=== PATIENT | male | born 1975 | race Caucasian/White ===

== ENCOUNTER 2017-03-05 12:53 | Inpatient (IN) | payer BC, OTHER ==
[~2017-03-05] VITALS: Ht 182.9 cm; Wt 65.8 kg
[2017-03-05] VITALS: BP 125/82
--- NOTE | 2017-03-05 22:45 | NUR ---
PRE-ADMISSION NOTE: Patient assessed in intake office at 22:45 on 03/05/2017. Patient is ambulatory with steady gate, stable, A&Ox4, speech is soft and clear. 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 Patient states that his last use "Xanax PO today, 03/05/2017 at 15:00" Meth smoke last time" 4 days ago, 03/01/17". CIWA 8: Patient presents with anxiety, agitation, nervousness, bone aches, low back pain, tremors that can felt, sweating. Patient denies N/V, and diarrhea. Patient denies SI/HI. Patient denies history of seizures. Patient reports history of paranoia. Last time he has paranoia "03/01/15, after Xanax taken". VS: T 97'9; HR: 77; BP: 126/82; RR: 18; O2 Sat: 98%; Pain level ( generalized): "7/10". Patient reports pollen extracts allergies . Patient instructed on unit protocol of vitals Q4H and CIWA assessments. Patient verbalizing understanding and agreement. Will complete admission assessment when patient is brought up to unit.
[2017-03-05 23:00] VITALS: BP 126/82
--- NOTE | 2017-03-05 23:00 | NUR ---
ADMISSION NOTE: Patient is a 42 year old male admitted to [facility] on 03/05/17 at 23:00 for Benzo Dependence under medical supervision. Pre-Assessment completed in intake. VS upon admission VS: T 97'9; HR: 77; BP: 126/82; RR: 18; O2 Sat: 98%; Pain level ( generalized): "7/10". Patient reports pollen extracts allergies . Regular Diet, Full Code, Fall and Seizures Precautions. Patient denies history of Seizures. CIWA 8: Patient presents with anxiety, agitation, nervousness, bone aches, low back pain, tremors that can felt, sweating. Patient denies N/V, and diarrhea. Patient denies SI/HI. Patient reports history of paranoia. Last time he has paranoia "03/01/15, after Xanax taken". Height is 6'0", Weight by standing scale is 145 Lbs. Patient reports PCP: Otis Perera MD.. Patient admitted under the care of doctor Ricky Baig MD, and doctor is aware for patient condition. Patient reports PMH: Depression, Anxiety, Paranoia. Substance Use: Patient states that his last use "Xanax PO since 1989 4 mg every day. Last time taken 03/05/2017 1 mg at 15:00" Meth smoke every day . Can't recall amount. Last time" 4 days ago, 03/01/17, can't recall amount". Patient reports smoking 20 cigarettes every day since 2005". Patient reports did not was in detox before. Smoking Cessation education provided. Patient verbalizes understanding. Patient denies taking home medications. Patient is ambulatory with steady gate. A&Ox4. Respirations are even and unlabored. Patient denies SOB, cough and chest pain. Bowel Sounds are active in all 4 quadrants. Last BM was "03/05/17 at 10:00". Abdomen is soft and non-distended, non-tender. Skin is intact, warm and moist by touch. Encouraged fluid intake, as tolerated. Patient is oriented to his room and unit, education provided on Hand Washing, Hepatitis C, Substance abuse, Falls and Seizures, Smoking Cessation. Patient did not provided UDS test. Safety measures in the place by hospital policy: call light within reach, bed in the lowest position and locked, bed padded rails up x2. Will continue to monitor closely. Addendum: 03/06/17 at 0425 by KATARINA RAYMUNDO RN Patient denies taking home medications recently. Reconciliation home medications done.
[2017-03-06] VITALS: BP 126/82
[2017-03-06] MEDS ORDERED: DESV50TA PO (00:26)
[2017-03-06] MEDS ORDERED: ESOM40CA PO (00:28)
[2017-03-06] MEDS ORDERED: MAGNESIUM HYDROXIDE 30 ML LIQUID UDC PO PRN (00:30)
[2017-03-06] MEDS ORDERED: MIRALAX 17 GM POWD.PACK PO PRN (00:30)
[2017-03-06] MEDS ORDERED: DIAZEPAM 5 MG TABLET PO PRN (00:30)
[2017-03-06] MEDS ORDERED: MAG HYDROX/AL HYDROX/SIMETH 30 ML LIQUID UDC PO PRN (00:30)
[2017-03-06] MEDS ORDERED: THIAMINE HCL 200 MG/2 ML VIAL IM ONE (00:30)
[2017-03-06] MEDS ORDERED: ONDANSETRON ODT 4 MG TAB.RAPDIS SL PRN (00:30)
[2017-03-06] MEDS ORDERED: DIAZEPAM 10 MG TABLET PO PRN ×2 (00:30)
[2017-03-06] MEDS ORDERED: diphenhydrAMINE 50 MG CAPSULE PO PRN (00:30)
[2017-03-06] MEDS ORDERED: PROMETHAZINE HCL 25 MG/1 ML VIAL IM PRN (00:30)
[2017-03-06] MEDS ORDERED: CLONIDINE HCL 0.1 MG TABLET PO PRN (00:30)
[2017-03-06] MEDS ORDERED: LOPERAMIDE HCL 2 MG CAPSULE PO PRN ×2 (00:30)
[2017-03-06] MEDS ORDERED: LORAZEPAM 2 MG/1 ML VIAL IM PRN (00:30)
[2017-03-06] MEDS ORDERED: ACETAMINOPHEN 325 MG TABLET PO PRN (00:30)
[2017-03-06] MEDS ORDERED: DICYCLOMINE HCL 20 MG TABLET PO PRN (00:30)
[2017-03-06] MEDS ORDERED: GABA-534 PO (00:31)
[2017-03-06] MEDS ORDERED: ERGO500047 PO (00:54)
[2017-03-06] MEDS ORDERED: TOBR5DRO13 EACHEYE (00:54)
[2017-03-06] MEDS ORDERED: PROP10DR4 OP (00:54)
[2017-03-06] MEDS ORDERED: ABAC1TAB15 PO (00:54)
[2017-03-06] MEDS ORDERED: ARIP2TAB11 PO (00:54)
[2017-03-06] MEDS ORDERED: IBUP-1481 PO (00:54)
[2017-03-06] MEDS ORDERED: FLUT16SP BNOSTRILS (00:57)
--- NOTE | 2017-03-06 04:00 | NUR ---
VS REFUSED AND CIWA DEFERRED Patient refused VS for 04:00. CIWA deferred d/t patient sleeping to assess while patient is awake. Safety measures on place by hospital policy: Call light within reach; Bed in lowest position and locked; side rails up x2. Will continue to monitor.
--- NOTE | 2017-03-06 06:53 | NUR ---
END OF SHIFT NOTE: Patient endorsed to incoming day shift nurse in stable condition. SBAR report given. Patient is a 42 year old male admitted to [facility] on 03/05/17 at 23:00 for Benzo Dependence under medical supervision. VS WNL. Patient reports pollen extracts allergies . Regular Diet, Full Code, Fall and Seizures Precautions. Patient denies history of Seizures. Upon endorsement, CIWA 5: Patient presented with anxiety, agitation, nervousness, bone aches, low back pain, tremors that can felt, sweating. Patient denies N/V, and diarrhea. Patient denies SI/HI. Patient reports history of paranoia. Last time he has paranoia "03/01/15, after Xanax taken". Height is 6'0", Weight by standing scale is 145 Lbs. Patient reports PCP: Otis Perera MD. Patient admitted under the care of doctor Ricky Baig MD, and doctor is aware for patient condition. Patient reports PMH: Depression, Anxiety, Paranoia. Substance Use: Patient states that his last use "Xanax PO since 1989 4 mg every day. Last time taken 03/05/2017 1 mg at 15:00" Meth smoke every day . Can't recall amount. Last time" 4 days ago, 03/01/17, can't recall amount". Patient reports smoking 20 cigarettes every day since 2005". Smoking Cessation education provided. Patient verbalizes understanding. Breathing is even and unlabored. Patient denies SOB, cough and chest pain. Bowel Sounds are active in all 4 quadrants. Last BM was "03/05/17 at 10:00". Abdomen is soft and non-distended, non-tender. Skin is intact, warm and moist by touch. No PRN Medications given Patient slept 6 hours 30 minutes; Intake 0 ml. Patient unable to provided UDS test upon admission. Encouraged fluid intake, as tolerated. Safety measures in the place by hospital policy: call light within reach, bed in the lowest position and locked, bed padded rails up x2. Will continue to monitor closely.
[2017-03-06] MEDS ORDERED: ONDANSETRON 4 MG/2 ML VIAL IM PRN (07:15)
[2017-03-06 07:23] LABS: BASOPHILS % (AUTO) 0.4 % (0.0-2.0); EOSINOPHILS % (AUTO) 0.6 % (0.0-7.0); HEMATOCRIT 44.6 % (40-50); HEMOGLOBIN 15.3 G/DL (14.0-18.0); LYMPHOCYTES # (AUTO) 1.5 K/UL (0.8-4.8); LYMPHOCYTES % (AUTO) 19.6 % (20.5-51.5); MEAN CORPUSCULAR HEMOGLOBIN 30.8 UUG (27.0-31.0); MEAN CORPUSCULAR HGB CONC 34 g/dL (32.0-37.0); MONOCYTES # (AUTO) 0.4 K/UL (0.1-1.30); NEUTROPHILS # (AUTO) 5.6 K/UL (1.8-8.9); NEUTROPHILS % (AUTO) 73.4 % (38.5-71.5); PLATELET COUNT (AUTO) 237 K/UL (150-450); RED BLOOD CELL COUNT(AUTO) 4.95 MIL/UL (4.7-6.1); RED CELL DISTRIBUTION WIDTH 13.2 % (11.5-14.5); WHITE BLOOD COUNT (AUTO) 7.5 K/UL (4.0-11.2)
[2017-03-06 07:36] LABS: ETHANOL < 3 MG/DL (0-0)
--- NOTE | 2017-03-06 07:38 | NUR ---
BEGINNING OF SHIFT Patient endorsement report received from garbage truck dispatcher nurse, all pertinent information discussed. Patient is a 42 year old male admitted on 03/05/2017 with admitting Dx: BZO/methamphetamine dependence. As per garbage truck dispatcher report patient has not provided UDS. Patient has been in room sleeping as per garbage truck dispatcher. Per report patient slept for 8 hour. with last ciwa score of: 5, no PRNs received. Patient received in room with eyes closed, respirations are even and unlabored. call light with in reach. Responsive to verbal stimuli, educated regarding plan of care for the day. will continue to monitor closely. safety measures in place.
[2017-03-06 07:44] LABS: ALANINE AMINOTRANSFERASE 42 U/L (16-63); ALBUMIN 3.6 g/dL (3.4-5.0); ALKALINE PHOSPHATASE 81 U/L (50-136); AMYLASE 127 U/L (25-115); ASPARTATE AMINOTRANSFERASE 35 U/L (15-37); BILIRUBIN,TOTAL 0.2 mg/dL (0.2-1.0); CALCIUM 8.5 mg/dL (8.5-10.1); CARBON DIOXIDE 28 mmol/L (21-32); CHLORIDE 106 mmol/L (98-107); CREATININE 0.8 mg/dL (0.6-1.3); GFR 106 mL/min (>60); GLUCOSE 102 mg/dL (74-106); LIPASE 273 U/L (73-393); POTASSIUM 4.4 mmol/L (3.5-5.1); SODIUM SERUM 140 mmol/L (136-145); TOTAL PROTEIN, SERUM 7.3 g/dL (6.4-8.2); UREA NITROGEN, BLOOD 21 mg/dL (7-18)
[2017-03-06 07:56] LABS: THYROID STIMULATING HORMONE 1.253 mIU/mL (0.358-3.740)
[2017-03-06 08:13] LABS: HIV-1 p24 ANTIGEN NON REACTIVE (NONREACTIVE); HIV-1/2 ANTIBODY REACTIVE (NONREACTIVE)
[2017-03-06] MEDS ORDERED: THIAMINE HCL 100 MG TABLET PO SCH (09:00)
[2017-03-06] MEDS ORDERED: TUBERCULIN,PURIF.PROT.DERIV. 5 TU/0.1 ML TEST ID ONE (09:00)
[2017-03-06] MEDS ORDERED: FOLIC ACID 1 MG TABLET PO SCH (09:00)
[2017-03-06] MEDS: PATIENT MAY USE OWN MED- MD OK PO SCH (09:00)
[2017-03-06] MEDS: MULTIVITAMINS,THERAPEUTIC TABLET PO SCH (09:08)
[2017-03-06 09:29] VITALS: BP 117/70
[2017-03-06 11:44] LABS: *AMPHETAMINE, URINE NEGATIVE (NEGATIVE); *BARBITURATE, URINE NEGATIVE (NEGATIVE); *CANNABINOID, URINE NEGATIVE (NEGATIVE); *COCCAINE, URINE NEGATIVE (NEGATIVE); *OPIATE, URINE NEGATIVE (NEGATIVE); *PHENCYCLIDINE SCREEN,URINE NEGATIVE (NEGATIVE)
[2017-03-06 13:00] VITALS: BP 120/76
[2017-03-06] MEDS: GABAPENTIN 300 MG CAPSULE PO SCH ×2 (15:00→20:53)
[2017-03-06] MEDS: ARIPIPRAZOLE 2 MG TABLET PO SCH (15:45)
[2017-03-06] MEDS ORDERED: LORAZEPAM 1 MG TABLET PO PRN ×2 (16:00)
[2017-03-06 17:43] VITALS: BP 121/86
--- NOTE | 2017-03-06 19:01 | NUR ---
START OF SHIFT NOTE: Patient endorsed by day shift nurse in stable condition. SBAR report received. Patient is a 42 year old male admitted to [facility] on 03/05/17 for Benzo Dependence under medical supervision, placed on PRN Medications. No taper ordered. Patient reports pollen extracts allergies . Regular Diet, Full Code, Fall and Seizures Precautions. Patient denies history of Seizures. Upon endorsement, CIWA 5: Patient presented with anxiety, agitation, nervousness, bone aches, low back pain, tremors that can felt, sweating. Patient denies N/V, and diarrhea. Patient denies SI/HI. Patient reports history of paranoia. Last time he has paranoia "03/01/15, after Xanax taken". PMH: Depression, Anxiety, Paranoia. Patient states, "Xanax used since 1989 4 mg PO every day. Last time taken 03/05/2017 1 mg PO on 03/05/17 at 15:00". Patient reports for " Meth smoke every day" . Patient unable recalled amount. Last time patient taken " Meth smoked 4 days ago, on 03/01/17". Patient unable recalled amount. Patient reports that he smoking "20 cigarettes every day since 2005". Smoking Cessation education provided. Patient verbalizes understanding. Upon endorsement, COWS 6: Patient presented with anxiety, agitation, nervousness, tremors that felt, sweating, body aches. Patient denies SI/HI. VS WNL. Breathing is even and unlabored. Patient denies SOB, cough and chest pain. Bowel Sounds are active in all 4 quadrants. Last BM was "03/05/17 at 10:00". Abdomen is soft and non-distended, non-tender. Skin is intact, warm and moist by touch. Safety measures in the place by hospital policy: call light within reach, bed in the lowest position and locked, bed padded rails up x2. Will continue to monitor closely.
--- NOTE | 2017-03-06 19:01 | NUR ---
END OF SHIFT Patient alert and oriented x4, vital signs stable during shift. Patient with admitting Dx: BZO dependence. Patient currently under close observation, no ongoing taper at this time. 0900 assessment patient presented with: tremors that can be felt but not seen, barely sweating, mild anxiety, mild agitation, and mild head fullness with ciwa score of: 6, 1300 assessment patient presented with: tremors that can be felt but not seen,barely sweating, mild anxiety, mild agitation and mild head fullness with ciwa score of: 6. 1700 assessment patient presented with: tremors that can be felt but not seen, barely sweating, mild anxiety and mild agitation with ciwa score of: 4.Patient was encouraged increase in PO fluid intake as tolerated. During shift patient refused Neurontin, and ability despite explanation of risk vs benefits, per patient he will take tomorrow morning. Patient in bed thought the shift, per patient reports he is very tired and wants to sleep. Patient was administered no PRN during shift.Patient was administered PPD to left f/a as ordered, to be read in 48 hours, procedure well tolerated. Patient encouraged adequate PO fluid intake as tolerated. Encouraged to attend group therapies/sessions to learn new coping skills to prevent relapse, denies any SI/HI. Safety measures in place. call light kept with in reach. all needs met and rendered. patient endorsed to shake packer nurse, all pertinent information discussed.
[2017-03-06 20:00] VITALS: BP 109/66
[2017-03-06] MEDS: TRIUMEQ PO SCH (20:58)
[2017-03-07] VITALS: BP 116/68
[2017-03-07 04:00] VITALS: BP 102/59
[2017-03-07] MEDS: PANTOPRAZOLE SODIUM 40 MG TABLET.DR PO SCH (06:39)
--- NOTE | 2017-03-07 07:16 | NUR ---
END OF SHIFT NOTE: Patient endorsed to day shift nurse in stable condition. Report given. Patient is a 42 year old male admitted to [facility] on 03/05/17 for Benzodiazepines dependence, placed on PRN medications. Patient tolerated well. Patient reports pollen extracts allergies . Regular Diet, Full Code, Fall and Seizures Precautions. Patient denies History of Seizures. During last shift superintendent CIWA decreased from 5 to 3. Patient presented with anxiety, agitation, nervousness, body aches, tremors that can be felt, and sweating. Patient denies N/V, and diarrhea. Patient denies SI/HI. VS at 04:00: T: 97'6; HR: 76; RR: 16; RA O2Sat: 100%; BP: 102/59; Pain level: "0/10". Skin is intact, warm and moist by touch. Patient slept 12 hours; Intake 500 ml, voided x2. Encouraged fluid intake, as tolerated. Encouraged to attend of groups activities. Safety measure in the place by hospital policy. Call light within reach, bed in the lowest position and locked, padded rails up x2.
--- NOTE | 2017-03-07 07:43 | NUR ---
BEGINNING OF SHIFT Patient endorsement report received from assistant shift supervisor nurse, all pertinent information discussed. Patient is a 42 year old male admitted on 03/05/2017 with admitting Dx: BZO/methamphetamine dependence. Per report patient slept for 12 hour. with last ciwa score of: 3, no PRNs received. Patient received in room with eyes closed, respirations are even and unlabored. call light with in reach. Responsive to verbal stimuli, educated regarding plan of care for the day. will continue to monitor closely. safety measures in place.
[2017-03-07] MEDS ORDERED: ERGOCALCIFEROL 50,000 UNIT CAPSULE PO SCH (09:00)
[2017-03-07] MEDS ORDERED: LORAZEPAM 1 MG TABLET PO SCH ×2 (09:00→17:00)
[2017-03-07 09:20] VITALS: BP 102/61
[2017-03-07] MEDS: MULTIVITAMINS,THERAPEUTIC TABLET PO SCH (09:21)
[2017-03-07] MEDS: FLUTICASONE PROP NASAL SPRAY 16 GM BOTTLE NS SCH (09:21)
[2017-03-07] MEDS: PATIENT MAY USE OWN MED- MD OK PO SCH (09:22)
[2017-03-07] MEDS: ARIPIPRAZOLE 2 MG TABLET PO SCH (09:22)
[2017-03-07] MEDS: GABAPENTIN 300 MG CAPSULE PO SCH ×3 (09:22→20:38)
[2017-03-07 13:00] VITALS: BP 120/73
[2017-03-07 16:00] VITALS: BP 105/60
--- NOTE | 2017-03-07 18:38 | NUR ---
END OF SHIFT Patient alert and oriented x4, vital signs stable during shift. Patient with admitting Dx: BZO dependence. Patient started modified Ativan taper as ordered and is on day 1 of 4 of taper, well tolerated, no ASE noted. 0900 assessment patient presented with: sweats, very mild pins and needles to BLE, mild anxiety, mild agitation and tremors that can be felt but not seen, with ciwa score of: 7 , 1300 assessment patient presented with: tremors that can be felt but not seen, barely sweating, mild anxiety and mild agitation with ciwa score of: 4. 1700 assessment patient presented with: : tremors that can be felt but not seen, barely sweating, mild anxiety and mild agitation with ciwa score of: 4. Patient was encouraged increase in PO fluid intake as tolerated. Patient in bed thought the shift, per patient reports he is very tired and wants to sleep, encouraged patient to participate in activities, refused despite much encouragement preferred to stay in room watching TV. Patient was administered no PRN during shift. Patient encouraged adequate PO fluid intake as tolerated. Encouraged to attend group therapies/sessions to learn new coping skills to prevent relapse, denies any SI/HI. Safety measures in place. call light kept with in reach. all needs met and rendered. patient endorsed to shift nurse manager nurse, all pertinent information discussed.
--- NOTE | 2017-03-07 19:30 | NUR ---
START OF SHIFT NOTE : Patient is a 42 year old male admitted on 03/05/2017 with admitting Dx: BZO/methamphetamine dependence. Patient received in room with eyes closed, respirations are even and unlabored. Pt remains compliant with the treatment plan. V/S remain WNL. RR=16, even and unlabored, lungs clear upon auscultation, abdomen soft and non- distended. Pt denies nausea, vomiting and diarrhea. Safety measures in place : bed on lowest position with side rails x2 up for safety, call light within reach. Will continue to monitor closely and offer help.
[2017-03-07] MEDS: TRIUMEQ PO SCH (20:37)
[2017-03-08] VITALS: BP 116/78
--- NOTE | 2017-03-08 06:57 | NUR ---
END OF SHIFT NOTE : Patient is a 42 year old male admitted on 03/05/2017 with admitting Dx: BZO/methamphetamine dependence. Patient received in room with eyes closed, respirations are even and unlabored. Pt remains compliant with the treatment plan. V/S remain WNL.RR=16, even and unlabored, lungs clear upon auscultation, abdomen soft and non- distended. Pt denies nausea, vomiting and diarrhea. LAST CIWA= 3, at 0600 , BJVQAQ=562 ml, voided x 1, slept 8 hours. Safety measures in place : bed on lowest position with side rails x2 up for safety, call light within reach. Will continue to monitor closely and offer help.
[2017-03-08] MEDS: PANTOPRAZOLE SODIUM 40 MG TABLET.DR PO SCH (07:31)
--- NOTE | 2017-03-08 07:46 | NUR ---
BEGINNING OF SHIFT Patient endorsement report received from night shift supervisor nurse, all pertinent information discussed. Patient is a 42 year old male admitted on 03/05/2017 with admitting Dx: BZO/methamphetamine dependence. Per report patient slept for 10 hour. with last ciwa score of: 3, no PRNs received. Patient received in room with eyes closed, respirations are even and unlabored. call light with in reach. Responsive to verbal stimuli, educated regarding plan of care for the day. will continue to monitor closely. safety measures in place.
[2017-03-08 09:09] VITALS: BP 114/66
[2017-03-08] MEDS: MULTIVITAMINS,THERAPEUTIC TABLET PO SCH (09:13)
[2017-03-08] MEDS: LORAZEPAM 1 MG TABLET PO SCH ×4 (09:13→20:26)
[2017-03-08] MEDS: GABAPENTIN 300 MG CAPSULE PO SCH ×3 (09:13→20:27)
[2017-03-08] MEDS: ARIPIPRAZOLE 2 MG TABLET PO SCH (09:13)
[2017-03-08] MEDS: PATIENT MAY USE OWN MED- MD OK PO SCH (09:13)
[2017-03-08] MEDS: FLUTICASONE PROP NASAL SPRAY 16 GM BOTTLE NS SCH (09:13)
[2017-03-08 12:30] VITALS: BP 113/74
[2017-03-08 17:00] VITALS: BP 122/69
--- NOTE | 2017-03-08 19:01 | NUR ---
END OF SHIFT Patient alert and oriented x4, vital signs stable during shift. Patient with admitting Dx: BZO dependence. Patient started modified Ativan taper as ordered and is on day 2 of 4 of taper, well tolerated, no ASE noted. 0900 assessment patient presented with: tremors that can be felt but not seen, mild anxiety and mild agitation with ciwa score of: 3; 1300 assessment patient presented with: tremors that can be felt but not seen ,mild anxiety and mild agitation with ciwa score of: 3; 1700 assessment patient presented with: tremors that can be felt but not seen, and mild anxiety and mild agitation with ciwa score of: 3. Patient was encouraged increase in PO fluid intake as tolerated. Patient in bed thought the shift, per encouraged patient to begin to participate in activities and to begin attending group therapies/sessions to learn new coping skills to prevent relapse, refused despite much encouragement preferred to stay in room watching TV. Patient was administered no PRN during shift. Patient encouraged adequate PO fluid intake as tolerated. Dr. Baig and Dr. Jones aware of patients preference to stay in room, denies any SI/HI. Safety measures in place. call light kept with in reach. all needs met and rendered. patient endorsed to field service representative nurse, all pertinent information discussed.
[2017-03-08 20:00] VITALS: BP 119/78
--- NOTE | 2017-03-08 20:00 | NUR ---
2000 Patient received sleeping soundly in low semi-fowlers position of comfort. Aroused for Vital signs and nurse assess. Patient responds slowly and in somewhat drowsy manner, when he states, with poor eye contact, " Oh, Hi. Okay, thank you sweetheart". Patient's color is pink and his skin is warm, dry and intact. Patient is oriented to person, place, day and his personal situation. Reoriented to date and time. Patient's lung sounds are clear bilaterally, though somewhat diminished and hypoactive bowel sounds are noted X 4 abdominal Quads, per auscultation. Patient's body movements are slow and measured. Vital signs are: 97.5-104-20 119/78, O2 Sat 98%, CIWA 3. Patient denies any pain or other discomforts at this time and he voices no requests or c/o anything. Patient states that he has been eating regular diet tray and taking fluids ad chay as much as he is able to. Patient states further that he has just been resting a lot and hasn't really been participating in [facility] groups too much. Patient is cooperative and verbally appropriate when interacting with nurse, though his mood/affect is slightly withdrawn and guarded, and he communicates in monosyllables mostly, when spoke to. Bed is locked and in lowest position, bed rails are up X 2 and call light within patient's easy reach.
[2017-03-08] MEDS: TRIUMEQ PO SCH (20:27)
[2017-03-09] VITALS: BP 102/59
[2017-03-09 04:00] VITALS: BP 103/62
--- NOTE | 2017-03-09 06:30 | NUR ---
0630 Patient slept a total of 8 hours and he had 2 voids and no stools. Total intake was 855 ml p.o. No Prn medications given this shift. V/SS afebrile, CIWA 1 at 0400. Patient was admitted on 03/05/17 for Xanax and Methamphetamine withdrawal and he is currently on a 4-Day modified Ativan medication taper per D.O, which he has apparently been tolerating well so far. Patient is presently sleeping comfortably in stable condition, with eyes closed and respirations quiet, even, unlabored at 12.
[2017-03-09] MEDS: PANTOPRAZOLE SODIUM 40 MG TABLET.DR PO SCH (06:56)
[2017-03-09 08:00] VITALS: BP 113/74
--- NOTE | 2017-03-09 08:20 | NUR ---
RECEIVED PT IS A/O X 4. HE PRESENTS WITH GUARDED AFFECT AND ANXIOUS MOOD. HE REPORTS SOME DEPRESSION AND ANXIETY . HE DENIES S/I AND H/I. CIWA 2 ENCOURAGED PT TO ATTEND ACTIVITIES AND GROUPS. ENCOURAGED INCREASED FLUIDS FOR HYDRATION. PT STATES HE WILL GET OUT OF BED AND ATTEND GROUPS AND ACTIVITIES. WILL CONTINUE TO MONITOR AND OFFER SUPPORT.
[2017-03-09] MEDS: ARIPIPRAZOLE 2 MG TABLET PO SCH (09:38)
[2017-03-09] MEDS: GABAPENTIN 300 MG CAPSULE PO SCH ×3 (09:39→21:12)
[2017-03-09] MEDS: PATIENT MAY USE OWN MED- MD OK PO SCH (09:39)
[2017-03-09] MEDS: LORAZEPAM 1 MG TABLET PO SCH ×2 (09:39→14:06)
[2017-03-09] MEDS: FLUTICASONE PROP NASAL SPRAY 16 GM BOTTLE NS SCH (09:40)
[2017-03-09] MEDS: MULTIVITAMINS,THERAPEUTIC TABLET PO SCH (09:41)
[2017-03-09 12:00] VITALS: BP 116/69
[2017-03-09 16:00] VITALS: BP 100/60
[2017-03-09] MEDS: HYDROXYZINE PAMOATE 25 MG CAPSULE PO PRN (18:30)
--- NOTE | 2017-03-09 18:51 | NUR ---
END OF SHIFT: PT HAS COMPLETED ATIVAN TAPER. HIS AFFECT WAS GUARDED IN AM BUT AFFECT BECAME BRIGHTER LATER IN DAY. LAST CIWA 3. HE ATTENDED SOME ACTIVITIES AND GROUPS TODAY AND BECAME INTERACTIVE WHEN ASKED OPEN ENDED QUESTIONS. HE REPORTED SOME ANXIETY LATE IN SHIFT AND VISTARIL PRN GIVEN. WILL ENDORSE MONITORING OF EFFECTIVENESS TO NIGHT NURSE. PT IS EXPRESSED ANXIETY ABOUT WHERE HE IS GOING FROM HERE. DIRECTED PT TO WINE MASTER.. OFFERED SUPPORT.WILL PASS SHIFT REPORT TO ONCOMING NIGHT NURSE.
[2017-03-09 20:00] VITALS: BP 104/69
--- NOTE | 2017-03-09 20:00 | NUR ---
2000 Patient received sleeping soundly in low semi-fowlers position of comfort. Patient aroused for nurse assess and vital signs. Patient did not verbally respond to nurse's greeting and he closed his eyes almost immediately after he opened them at nurse's greeting. Patient is oriented to person, place, day and his personal situation. Reoriented to date and time. Patient's color is tannish-pink and his skin is warm, dry and intact. Lung sounds are clear though slightly diminished in lower lobes and hypoactive bowel sounds are noted X 4 abdominal Quads, per auscultation. Patient states that he got up today and moved around more than the day before and he states further that he " felt a little better". Patient states that he has been eating his regular diet trays and taking fluids ad chay as best as he can. Patient states that he went to [facility] group today. Vital signs are: 98.4-82-16 104/69, O2 sat 96%, CIWA 2. Patient denies any pain or other discomforts and he offers no requests or c/o anything. Patient was admitted on 03/05/17 for Xanax and Methamphetamine withdrawal and he has completed his 4-Day modified Ativan medication taper. Patient is overall quiet, withdrawn in mood/affect, and speaks in monosyllables mostly when spoken to first. Bed is locked and in lowest position, bed rails are up X 2 and call light within patient's easy reach.
[2017-03-09] MEDS: TRIUMEQ PO SCH (21:11)
[2017-03-10] VITALS: BP 101/67
[2017-03-10 04:00] VITALS: BP 101/61
--- NOTE | 2017-03-10 06:30 | NUR ---
0630 Patient slept a total of 7 hourss and he had 2 voids and 1 stools. Total intake was 855 ml p.o. V/SS afebrile, CIWA at 0400 was 2. No prn medications given this shift. Patient is presently sleeping comfortably in stable condition, with eyes closed and respirations quiet, regular, unlabored at 12.
[2017-03-10] MEDS: PANTOPRAZOLE SODIUM 40 MG TABLET.DR PO SCH (07:02)
--- NOTE | 2017-03-10 07:30 | NUR ---
START OF SHIFT NOTE: RECEIVED PT FROM AQUATIC DIRECTOR NURSE, PT IS IN STABLE CONDITION AT THIS TIME NO S/S OF PAIN OR DISCOMFORT. PT AT TIMES WITH FLAT AFFECT. PT IS ADMITTED TO [facility] FOR BENZO/METH WITHDRAWAL/DEPENDENCE. PT TOLERATING TAPER WELL NO A/R NOTED. WILL CONTINUE TO MONITOR PT FOR ANY CHANGES AND CONTINUE TO MEET PTS NEEDS
[2017-03-10 08:52] LABS: AMYLASE 129 U/L (25-115); LIPASE 237 U/L (73-393)
[2017-03-10 09:00] VITALS: BP 114/73
[2017-03-10] MEDS ORDERED: LORAZEPAM 1 MG TABLET PO SCH ×2 (09:00)
[2017-03-10] MEDS: GABAPENTIN 300 MG CAPSULE PO SCH ×3 (09:30→21:07)
[2017-03-10] MEDS: PATIENT MAY USE OWN MED- MD OK PO SCH (09:30)
[2017-03-10] MEDS: MULTIVITAMINS,THERAPEUTIC TABLET PO SCH (09:30)
[2017-03-10] MEDS: ARIPIPRAZOLE 2 MG TABLET PO SCH (09:30)
[2017-03-10] MEDS: FLUTICASONE PROP NASAL SPRAY 16 GM BOTTLE NS SCH (09:31)
[2017-03-10] MEDS ORDERED: HYDR-3895 PO (13:44)
[2017-03-10 13:58] VITALS: BP 124/83
[2017-03-10 17:40] VITALS: BP 117/77
[2017-03-10 18:32] LABS: *AMPHETAMINE, URINE NEGATIVE (NEGATIVE); *BARBITURATE, URINE NEGATIVE (NEGATIVE); *CANNABINOID, URINE NEGATIVE (NEGATIVE); *COCCAINE, URINE NEGATIVE (NEGATIVE); *OPIATE, URINE NEGATIVE (NEGATIVE); *PHENCYCLIDINE SCREEN,URINE NEGATIVE (NEGATIVE)
--- NOTE | 2017-03-10 19:01 | NUR ---
END OF SHIFT NOTE: PT IS IN STABLE CONDITION AT THIS TIME NO S/S OF PAIN OR DISCOMFORT. PT IS ADMITTED TO [facility] FOR BENZO/METH WITHDRAWAL/DEPENDENCE. PT'S LAST CIWA 1. PT IS SET FOR DISCHARGE TOMORROW. PT WITHOUT A/R TO MEDICATIONS. PT APPEARS TO BE IN A BETTER MOOD. PT HAS PROVIDED URINE FOR DISCHARGE. WILL ENDORSE PT TO COMPUTER OPERATIONS TECHNICIAN NURSE.
--- NOTE | 2017-03-10 19:30 | NUR ---
START OF SHIFT Pt is a 42 y/o male admitted for Benzo/Meth depencency. Pt is not on any taper at this time.He is compliant with medication regime,tolerating well. A/O X 4. Received in stable condition.PMH of anxiety,depression and HIV. Last CIWA was 1.No c/o pain or distress noted. All needs met, All safety measures in place per hospital policy. Bed in lowest position, side rails up x2, call-light within reach. Will continue to monitor.
[2017-03-10 20:00] VITALS: BP 127/77
[2017-03-10] MEDS: TRIUMEQ PO SCH (21:07)
--- NOTE | 2017-03-11 | NUR ---
V/S REFUSED,CIWA DEFERRED PT COMFORTABLY SLEEPING IN BED.BREATHING IS EVEN AND NON LABORED.NO S/S OF DISTRESS NOTED.
--- NOTE | 2017-03-11 04:00 | NUR ---
V/S REFUSED,CIWA DEFERRED PT COMFORTABLY SLEEPING IN BED.BREATHING IS EVEN AND NON LABORED.NO S/S OF DISTRESS NOTED.
--- NOTE | 2017-03-11 07:04 | NUR ---
END OF SHIFT Pt is a 42 y/o male admitted for Benzo/Meth depencency. Pt is not on any taper at this time.He is compliant with medication regime,tolerating well. A/O X 4. Received in stable condition.PMH of anxiety,depression and HIV. Last CIWA was 1.Pt slept 9 hrs,fluid intake was 850 mls,voided x 1.No c/o pain or distress noted. All needs met, All safety measures in place per hospital policy. Bed in lowest position, side rails up x2, call-light within reach. Will continue to monitor.
[2017-03-11] MEDS: PANTOPRAZOLE SODIUM 40 MG TABLET.DR PO SCH (07:21)
[2017-03-11 08:00] VITALS: BP 95/56
--- NOTE | 2017-03-11 08:07 | NUR ---
START OF SHIFT NOTE Received report from night nurse, 42 year old male admitted on 03/05/2017 for BENZO/Methamphetamine dependence. Pt reported PMH of Anxiety, Depression, HIV. Per report pt slept for 9 hour and last CIWA-1. No PRN's received. Received pt resting in room with eyes closed, respirations are even and unlabored. Responsive to verbal stimuli, Pt denies any N/V/D. Educated regarding plan of care for the day. With good verbal understanding. Safety measures in place, Call light within reach. Will continue to monitor.
[2017-03-11] MEDS: ARIPIPRAZOLE 2 MG TABLET PO SCH (09:07)
[2017-03-11] MEDS: MULTIVITAMINS,THERAPEUTIC TABLET PO SCH (09:07)
[2017-03-11] MEDS: FLUTICASONE PROP NASAL SPRAY 16 GM BOTTLE NS SCH (09:08)
[2017-03-11] MEDS: GABAPENTIN 300 MG CAPSULE PO SCH ×3 (09:08→21:01)
[2017-03-11] MEDS: PATIENT MAY USE OWN MED- MD OK PO SCH (09:14)
[2017-03-11] MEDS: IBUPROFEN 400 MG TABLET PO PRN ×2 (09:14→15:45)
--- NOTE | 2017-03-11 09:14 | NUR ---
PRN MOTRIN Pt c/o back pain 01/29, PRN Motrin 400mg administered as ordered. Will cont to monitor and reassess the pt.
--- NOTE | 2017-03-11 10:14 | NUR ---
REASSESSMENT Pt reported medication effective pain decreased to 10/31. Jorge;l cont to monitor.
[2017-03-11 12:00] VITALS: BP 122/80
--- NOTE | 2017-03-11 14:09 | NUR ---
PRN ROBAXIN Pt c/o of back pain 02/28, non pharmacological intervention ineffective. Administered PRN Robaxin 750mg Po 1 tab. Will cont to monitor and reassess the pt.
[2017-03-11] MEDS ORDERED: METHOCARBAMOL 750 MG TABLET PO PRN (14:15)
--- NOTE | 2017-03-11 15:09 | NUR ---
REASSESSMENT Upon reassessment pt reported medication effective pain decreased to 3/10. Will cont to monitor.
--- NOTE | 2017-03-11 15:45 | NUR ---
PRN Tylenol & Motrin Client reports lower back pain 04/30, Tylenol 650mg & Motrin 400mg PO administered. Risk/benefits discuss, he verbalized understanding. Endorsed to primary nurse to reassess. Call light within reach.
[2017-03-11 16:00] VITALS: BP 124/83
--- NOTE | 2017-03-11 16:45 | NUR ---
REASSESSMENT Upon reassessment pt reported medication effective pain decreased to 1/10. Will cont to monitor.
--- NOTE | 2017-03-11 18:56 | NUR ---
END OF SHIFT NOTE Gave report to night nurse, 42 year old male admitted for Benzo/Meth dependence. Pt completed his taper and currently is not on any taper. Pt is compliant with medication regime,tolerating well. pt attended groups and activities and also received PRN's medications for back pain effective. Pt's total intake was 1250ML,voided x 3. Last CIWA-1. Pt scheduled for discharge in AM. Safety measures in place per hospital policy. Bed in lowest position, side rails up x2, call-light within reach. Pt endorsed to night nurse in stable condition.
--- NOTE | 2017-03-11 19:02 | NUR ---
Start of shift note Received report from day shift nurse. Pt is a 42 yo male, A+Ox4, presenting to [facility] for Benzo/Meth dependence. Pt has Allergies to Pollen extracts, is Full Code status, and on Regular diet. Pt has HX of Anxiety, Depression, Paranoia, and HIV+. Pt is on Fall and Seizure precautions. Pt has completed 4 day Ativan taper, tolerated well, and is due for discharge tomorrow. No s/s of distress noted at this time. Respirations even and unlabored. Will continue to monitor.
[2017-03-11 20:11] VITALS: BP 101/60
[2017-03-11] MEDS: TRIUMEQ PO SCH (21:01)
[2017-03-11] MEDS: HYDROXYZINE PAMOATE 25 MG CAPSULE PO PRN (21:04)
--- NOTE | 2017-03-11 21:04 | NUR ---
PRN Vistaril Pt c/o Anxiety and requested form PRN Vistaril. Medication given and tolerated well. Will reassess within 1 HR. Will continue to monitor.
--- NOTE | 2017-03-11 22:00 | NUR ---
PRN Vistaril Reassessment Medication effective. Pt showing reduction in anxiety and resting well in bed at this time. No s/s of distress noted. Respirations even and unlabored. Will continue to monitor.
[2017-03-12 00:14] VITALS: BP 124/68
[2017-03-12 04:13] VITALS: BP 123/75
[2017-03-12] MEDS: PANTOPRAZOLE SODIUM 40 MG TABLET.DR PO SCH (06:03)
--- NOTE | 2017-03-12 07:03 | NUR ---
End of shift note Pt is a 42 yo male, A+Ox4, presenting to [facility] for Benzo/Meth dependence. Pt has Allergies to Pollen extracts, is Full Code status, and on Regular diet. Pt has HX of Anxiety, Depression, Paranoia, and HIV+. Pt is on Fall and Seizure precautions. Pt has completed 4 day Ativan taper, tolerated well, and is due for discharge today. Pt was given PRN Vistaril @2104. Pt slept for a total of 9 HRS. Last CIWA: 0 @0400. No s/s of distress noted at this time. Respirations even and unlabored. Will endorse to day shift nurse.
--- NOTE | 2017-03-12 07:15 | NUR ---
start of shift note: received pt from awake overnight counselor nurse, pt is in stable condition at this time no s/s of pain or discomfort. pt is admitted to [facility] for benzo/meth withdrawal/dependence. pt is set to discharge today. pt's last ciwa 1 and pt slept for 9 hrs. will assist pt in discharging and will continue to monitor pt for any changes.
[2017-03-12] MEDS: PATIENT MAY USE OWN MED- MD OK PO SCH (08:30)
[2017-03-12] MEDS: MULTIVITAMINS,THERAPEUTIC TABLET PO SCH (08:30)
[2017-03-12] MEDS: GABAPENTIN 300 MG CAPSULE PO SCH (08:30)
[2017-03-12] MEDS: ARIPIPRAZOLE 2 MG TABLET PO SCH (08:30)
[2017-03-12] MEDS: FLUTICASONE PROP NASAL SPRAY 16 GM BOTTLE NS SCH (08:30)
[2017-03-12 08:47] VITALS: BP 117/82
--- NOTE | 2017-03-12 09:15 | NUR ---
discharge note: pt left the unit in stable condition, pts last ciwa 0. pt without withdrawal symptoms, pt was admitted for benzo/meth withdrawal/dependence. pt's V/S WNL. Pt teaching was administered and pt verbalized understanding. all personal belongings were returned.
[2017-03-13 14:13] LABS: HCV AB >11.0 s/co ratio (0.0-0.9); HEPATITIS B CORE AB, IgM Negative (Negative); HEPATITIS B SURFACE AG Confirm. indicated (Negative); HEPATITIS B SURFACE AG CONF Positive (.)
== END 2017-03-12 09:15 | disposition other institution (70) | DRG 895 ==
LOC: SRC 22:31
PROVIDERS: ADMIT Internal Medicine; ATTEND Internal Medicine
PROC: HZ2ZZZZ Detoxification Services for Substance Abuse Treatment (ICD-10-PCS; principal; 2017-03-05)
PROC: HZ31ZZZ Individual Counseling for Substance Abuse Treatment, Behavioral (ICD-10-PCS; 2017-03-07)
PROC: HZ41ZZZ Group Counseling for Substance Abuse Treatment, Behavioral (ICD-10-PCS; 2017-03-10)
DX: F13.230 Sedative, hypnotic or anxiolytic dependence with withdrawal, uncomplicated (principal); F33.3 Major depressive disorder, recurrent, severe with psychotic symptoms; F15.20 Other stimulant dependence, uncomplicated; Z79.899 Other long term (current) drug therapy; F41.0 Panic disorder [episodic paroxysmal anxiety]
CPT/HCPCS: 36415; 70030-TC; 80307; 80346; 83690; 83735; 84443; 85025; 86580; 86592; 86705; 86803; 87340; 87806; G6040-TC; J3535